=== PATIENT | male | born 1960 | race Asian ===

== ENCOUNTER 2021-05-16 07:29 | Outpatient (CLI) | payer BC ==
[2021-05-16 15:23] LABS: BUN - BLOOD UREA NITROGEN 11 mg/dL (6-20); CALCIUM 9.7 mg/dL (8.5-10.3); CARBON DIOXIDE - CO2 28 mmol/L (21-32); CHLORIDE 99 mmol/L (101-111); CHOL/HDL RATIO 4.2 (<5.0); CHOLESTEROL 154 mg/dL; CREATININE 0.8 mg/dL (0.6-1.2); GFR - MDRD 99 (>89); GLUCOSE 149 mg/dL (70-100); HDL CHOLESTEROL 37 mg/dL; LDL CHOLESTEROL,CALCULATED 60 mg/dL; LDL/HDL RATIO 1.6 (<3.6); POTASSIUM 4.4 mmol/L (3.5-5.0); SODIUM 136 mmol/L (135-145); TRIGLYCERIDES 287 mg/dL; VLDL CHOLESTEROL 57 mg/dL
[2021-05-16 15:30] LABS: CREATININE,URINE 63.8 mg/dL; MICROALBUM/CREATININE RATIO,UR 332.3 ug/mg (<30.0); MICROALBUMIN,URINE 21.2 mg/dL (0-300.0)
[2021-05-16 20:04] LABS: ESTIMATED AVERAGE GLUCOSE 151 mg/dL (70-100); HEMOGLOBIN A1c% 6.9 % (4.27-6.07)
== END 2021-05-16 07:30 | disposition home or self-care (01) ==
LOC: LAB.S 07:29
PROVIDERS: ATTEND Nurse Practitioner
DX: E11.65 Type 2 diabetes mellitus with hyperglycemia (principal)
CPT/HCPCS: 36415; 80048; 80061; 82043; 82570; 83036; 83721; 84443

== ENCOUNTER 2021-06-25 15:17 | Outpatient (CLI) | payer BC ==
[2021-06-25 20:49] LABS: ESTIMATED AVERAGE GLUCOSE 140 mg/dL (70-100); HEMOGLOBIN A1c% 6.5 % (4.27-6.07)
== END 2021-06-25 15:18 | disposition home or self-care (01) ==
LOC: LAB.S 15:17
PROVIDERS: ATTEND Nurse Practitioner
DX: E11.65 Type 2 diabetes mellitus with hyperglycemia (principal)
CPT/HCPCS: 36415; 83036

== ENCOUNTER 2021-08-27 15:04 | Outpatient (CLI) | payer BC ==
[2021-08-27 20:40] LABS: ESTIMATED AVERAGE GLUCOSE 146 mg/dL (70-100); HEMOGLOBIN A1c% 6.7 % (4.27-6.07)
== END 2021-08-27 15:05 | disposition home or self-care (01) ==
LOC: LAB.S 15:04
PROVIDERS: ATTEND Nurse Practitioner
DX: E11.65 Type 2 diabetes mellitus with hyperglycemia (principal)
CPT/HCPCS: 36415; 83036

== ENCOUNTER 2022-11-27 12:26 | Outpatient (CLI) | payer BC ==
[2022-11-27 14:43] LABS: BASOPHILS % (AUTO) 0.3 %; EOSINOPHILS # (AUTO) 0.2 10^3/uL (0.0-0.7); EOSINOPHILS % (AUTO) 1.9 %; HCT - HEMATOCRIT 38.3 % (42.0-52.0); HGB - HEMOGLOBIN 12.6 g/dL (14.0-18.0); LYMPHOCYTES # (AUTO) 3.5 10^3/uL (1.5-3.5); LYMPHOCYTES % (AUTO) 29.9 %; MEAN CORPUSCULAR HEMOGLOBIN 29.7 pg (27.0-31.0); MEAN CORPUSCULAR HGB CONC 32.9 g/dL (32.0-36.0); MEAN CORPUSCULAR VOLUME 90.3 fL (80.0-94.0); MEAN PLATELET VOLUME 11.6 fL (7.4-11.4); MONOCYTES # (AUTO) 0.7 10^3/uL (0.0-1.0); MONOCYTES % (AUTO) 6.4 %; NEUTROPHILS # (AUTO) 7.1 10^3/uL (1.5-6.6); NEUTROPHILS % (AUTO) 61.2 %; PLT - PLATELET COUNT 294 10^3/uL (130-450); RED BLOOD COUNT 4.24 10^6/uL (4.70-6.10); WHITE BLOOD COUNT 11.6 x10^3/uL (4.8-10.8)
[2022-11-27 15:16] LABS: CREATININE,URINE 137.5 mg/dL
[2022-11-27 15:26] LABS: MICROALBUM/CREATININE RATIO,UR 333.1 ug/mg (<30.0); MICROALBUMIN,URINE 45.8 mg/dL
[2022-11-27 16:09] LABS: ALBUMIN 4.4 g/dL (3.2-5.5); ALBUMIN/GLOBULIN RATIO 1.8 (1.0-2.2); ALKALINE PHOSPHATASE 48 IU/L (42-121); ALT ALANINE AMINOTRANSFERASE 18 IU/L (10-60); AST ASPARTATE AMINOTRANSFERASE 16 IU/L (10-42); BILIRUBIN,TOTAL 0.7 mg/dL (0.2-1.0); BUN - BLOOD UREA NITROGEN 12 mg/dL (6-20); CALCIUM 9.9 mg/dL (8.5-10.3); CARBON DIOXIDE - CO2 32 mmol/L (21-32); CHLORIDE 103 mmol/L (101-111); CHOL/HDL RATIO 3.8 (<5.0); CHOLESTEROL 133 mg/dL; CREATININE 0.9 mg/dL (0.6-1.3); GFR - MDRD 86 (>89); GLUCOSE 116 mg/dL (74-104); HDL CHOLESTEROL 35 mg/dL; LDL CHOLESTEROL,CALCULATED 48 mg/dL; LDL/HDL RATIO 1.4 (<3.6); POTASSIUM 3.9 mmol/L (3.5-4.5); SODIUM 138 mmol/L (135-145); TOTAL PROTEIN 6.9 g/dL (6.4-8.9); TRIGLYCERIDES 249 mg/dL (48-352); VLDL CHOLESTEROL 50 mg/dL
[2022-11-27 16:21] LABS: THYROID STIMULATING HORMONE 0.03 uIU/mL (0.34-5.60)
[2022-11-27 19:53] LABS: ESTIMATED AVERAGE GLUCOSE 134 mg/dL (70-100); HEMOGLOBIN A1c% 6.3 % (4.27-6.07)
== END 2022-11-27 12:27 | disposition home or self-care (01) ==
LOC: LAB.S 12:26
PROVIDERS: ATTEND Internal Medicine
DX: E78.5 Hyperlipidemia, unspecified (principal); E11.42 Type 2 diabetes mellitus with diabetic polyneuropathy
CPT/HCPCS: 36415; 80053; 80061; 82043; 82570; 83036; 83721; 84439; 84443; 85025

== ENCOUNTER 2024-01-12 07:40 | Outpatient (CLI) | payer BC ==
[2024-01-12 15:16] LABS: BASOPHILS # (AUTO) 0.1 10^3/uL (0.0-0.1); BASOPHILS % (AUTO) 0.5 %; EOSINOPHILS # (AUTO) 0.4 10^3/uL (0.0-0.7); EOSINOPHILS % (AUTO) 3.8 %; HCT - HEMATOCRIT 42.2 % (42.0-52.0); HGB - HEMOGLOBIN 13.9 g/dL (14.0-18.0); LYMPHOCYTES # (AUTO) 2.8 10^3/uL (1.5-3.5); LYMPHOCYTES % (AUTO) 25.4 %; MEAN CORPUSCULAR HEMOGLOBIN 30.3 pg (27.0-31.0); MEAN CORPUSCULAR HGB CONC 32.9 g/dL (32.0-36.0); MEAN CORPUSCULAR VOLUME 92.1 fL (80.0-94.0); MONOCYTES # (AUTO) 0.7 10^3/uL (0.0-1.0); MONOCYTES % (AUTO) 6.5 %; NEUTROPHILS # (AUTO) 7.1 10^3/uL (1.5-6.6); NEUTROPHILS % (AUTO) 63.6 %; PLT - PLATELET COUNT 315 10^3/uL (130-450); RED BLOOD COUNT 4.58 10^6/uL (4.70-6.10); RED CELL DISTRIBUTION WIDTH 12.3 % (12.0-15.0); WHITE BLOOD COUNT 11.2 x10^3/uL (4.8-10.8)
[2024-01-12 15:36] LABS: CREATININE,URINE 37.2 mg/dL; MICROALBUM/CREATININE RATIO,UR 126.3 ug/mg (<30.0); MICROALBUMIN,URINE 4.7 mg/dL
[2024-01-12 15:48] LABS: THYROID STIMULATING HORMONE 0.03 uIU/mL (0.34-5.60)
[2024-01-12 15:57] LABS: ALBUMIN 4.6 g/dL (3.2-5.5); ALBUMIN/GLOBULIN RATIO 1.8 (1.0-2.2); ALKALINE PHOSPHATASE 47 IU/L (42-121); ALT ALANINE AMINOTRANSFERASE 14 IU/L (10-60); AST ASPARTATE AMINOTRANSFERASE 15 IU/L (10-42); BUN - BLOOD UREA NITROGEN 10 mg/dL (6-20); CALCIUM 9.8 mg/dL (8.5-10.3); CARBON DIOXIDE - CO2 29 mmol/L (21-32); CHLORIDE 104 mmol/L (101-111); CHOL/HDL RATIO 3.6 (<5.0); CHOLESTEROL 144 mg/dL; CREATININE 0.8 mg/dL (0.6-1.3); GFR - MDRD 98 (>89); GLUCOSE 110 mg/dL (74-104); HDL CHOLESTEROL 40 mg/dL; LDL CHOLESTEROL,CALCULATED 73 mg/dL; LDL/HDL RATIO 1.8 (<3.6); POTASSIUM 4.4 mmol/L (3.5-4.5); SODIUM 139 mmol/L (135-145); TOTAL PROTEIN 7.1 g/dL (6.4-8.9); TRIGLYCERIDES 154 mg/dL; VLDL CHOLESTEROL 31 mg/dL
[2024-01-12 21:00] LABS: ESTIMATED AVERAGE GLUCOSE 120 mg/dL (70-100); HEMOGLOBIN A1c% 5.8 % (4.27-6.07)
== END 2024-01-12 07:41 | disposition home or self-care (01) ==
LOC: LAB.S 07:40
PROVIDERS: ATTEND Internal Medicine
DX: I12.9 Hypertensive chronic kidney disease with stage 1 through stage 4 chronic kidney disease, or unspecified chronic kidney disease (principal); E11.22 Type 2 diabetes mellitus with diabetic chronic kidney disease; N18.9 Chronic kidney disease, unspecified; E78.5 Hyperlipidemia, unspecified; E11.42 Type 2 diabetes mellitus with diabetic polyneuropathy; Z79.899 Other long term (current) drug therapy; E03.9 Hypothyroidism, unspecified
CPT/HCPCS: 36415; 80053; 80061; 82043; 82570; 82607; 83036; 83721; 84439; 84443; 85025